=== PATIENT | female | born 1945 ===

== ENCOUNTER 2018-05-22 12:09 | Observation (INO) | payer OTHER ==
[2018-05-22 12:17] VITALS: BMI 24.6
--- NOTE | 2018-05-22 13:46 | RAD ---
Date of service: 05/22/2018 HISTORY: chest pain/ r/o infiltrate COMPARISON: No prior. TECHNIQUE: Chest PA and lateral FINDINGS: LUNGS: No active pulmonary disease. PLEURA: No significant pleural effusion identified. No pneumothorax apparent. CARDIOVASCULAR: Aortic atherosclerotic calcifications. Cardiomediastinal silhouette enlarged. OSSEOUS STRUCTURES: Spinal degenerative changes. VISUALIZED UPPER ABDOMEN: Normal. OTHER FINDINGS: None. IMPRESSION: No active disease.
--- NOTE | 2018-05-22 13:54 | ED PDOC ---
HPI: General Adult Time Seen by Provider: 05/22/18 12:37 Chief Complaint (Nursing): Flu-like Symptoms Chief Complaint (Provider): body pain, chest pain History Per: Patient, Ssrs Report Developer ([id number]) History/Exam Limitations: no limitations Onset/Duration Of Symptoms: Days (2) Current Symptoms Are (Timing): Still Present Severity: Moderate Additional Complaint(s): 73yo female presents w family member c/o body aches, chest pain, headache, ma laise, fatigue, cough ongoing for 2 days. Denies syncope, lethargy, edema or hemoptysis. No flu shot received this year, visiting from [place] country. Past Medical History Reviewed: Historical Data, Nursing Documentation, Vital Signs Vital Signs: Last Vital Signs Temp 98.3 F 05/22/18 12:17 Pulse 85 05/22/18 12:17 Resp 17 05/22/18 12:17 BP 113/70 05/22/18 12:17 Pulse Ox 96 05/22/18 12:17 - Medical History PMH: No Chronic Diseases Other PMH: wernt to PMD in [place] 4 [place]" but denies medical issues - Surgical History Surgical History: Cholecystectomy - Family History Family History: States: Unknown Family Hx - Living Arrangements Living Arrangements: With Family - Home Medications Home Medications: Ambulatory Orders Medication Instructions Recorded No Known Home Med 05/22/18 - Allergies Allergies/Adverse Reactions: Allergies Allergy/AdvReac Type Severity Reaction Status Date / Time No Known Allergies Allergy Verified 05/22/18 12:55 Review of Systems ROS Statement: Except As Marked, All Systems Reviewed And Found Negative Constitutional: Positive for: Weakness, Malaise ENT: Negative for: Ear Pain Respiratory: Positive for: Cough, Shortness of Breath Gastrointestinal: Negative for: Abdominal Pain Genitourinary Female: Negative for: Dysuria Musculoskeletal: Positive for: Arm Pain, Back Pain, Leg Pain, Other (myalgias) Neurological: Positive for: Headache, Dizziness. Negative for: Weakness, Numbness Physical Exam - Reviewed Nursing Documentation Reviewed: Yes Vital Signs Reviewed: Yes - Physical Exam Appears: Positive for: Well, Non-toxic, No Acute Distress Head Exam: Positive for: ATRAUMATIC, NORMAL INSPECTION, NORMOCEPHALIC Skin: Positive for: Normal Color, Warm, DRY Eye Exam: Positive for: EOMI, Normal appearance, PERRL ENT: Positive for: Normal ENT Inspection Neck: Positive for: Normal, Painless ROM Cardiovascular/Chest: Positive for: Regular Rate, Rhythm Respiratory: Positive for: Rhonchi Gastrointestinal/Abdominal: Positive for: Soft. Negative for: Tenderness, Guarding Back: Positive for: Normal Inspection Extremity: Positive for: Normal ROM Neurologic/Psych: Positive for: Alert, Oriented - Laboratory Results Result Diagrams: 05/22/18 14:00 05/22/18 14:00 - ECG ECG: Positive for: Interpreted By Me ECG Rhythm: Positive for: Normal QRS, Normal ST Segment, Sinus Rhythm Rate: 75 O2 Sat by Pulse Oximetry: 96 Pulse Ox Interpretation: Normal - Radiology X-Ray: Read By Radiologist X-Ray Interpretation: No Acute Disease Medical Decision Making Medical Decision Making: check flu, labs, CXR and EKG Gentle IVF and tylenol labs reviewed +flu given duoneb w some improvement lung hill given age, chest pain, +flu, admit obs tele. droplet isolation and tamiflu initiated Disposition - Clinical Impression Clinical Impression: Influenza, Chest pain - Patient ED Disposition Is Patient to be Admitted: Yes Counseled Patient/Family Regarding: Studies Performed, Diagnosis, Need For Followup - Disposition Disposition Time: 14:40 Condition: STABLE - Pt Status Changed To: Hospital Disposition Of: Observation
[2018-05-22] MEDS ORDERED: Sodium Chloride 0.9% 1,000 ML IV STA (14:01)
[2018-05-22 14:21] LABS: BASO % 0.5 % (0.0-2.0); EOS % 0.8 % (0.0-4.0); HEMOGLOBIN 13.7 g/dL (12.0-16.0); LYMPH # 1.7 K/uL (1.0-4.3); LYMPH % 27.5 % (20.0-40.0); MEAN CELL VOLUME 86.9 fl (81.0-99.0); MEAN CORPUSCULAR HGB CONC 33.4 g/dL (33.0-37.0); MEAN PLATELET VOLUME 10.3 fl (7.2-11.7); MONO # 0.6 K/uL (0.0-0.8); MONO % 10.4 % (0.0-10.0); NEUT # 3.7 K/uL (1.8-7.0); NEUT % 60.8 % (50.0-75.0); NRBC % 0.1 % (0.0-0.0); RBC 4.74 Mil/uL (3.80-5.20); RED CELL DISTRIBUTION WIDTH 13.9 % (11.5-14.5); WHITE BLOOD COUNT 6.1 K/uL (4.8-10.8)
[2018-05-22 14:30] LABS: RENAL EPITHELIAL 1 /hpf (0-3); SQUAMOUS EPITHIAL 8 /hpf (0-5); URINE AMORPHOUS SEDIMENT RARE /ul (<OCC); URINE BILIRUBIN NEGATIVE (NEGATIVE); URINE BLOOD NEGATIVE (NEGATIVE); URINE CLARITY CLOUDY (Clear); URINE COLOR AMBER (YELLOW); URINE GLUCOSE (UA) NEG (NEGATIVE); URINE LEUKOCYTE ESTERASE NEG Leu/uL (Negative); URINE PROTEIN 30 mg/dL (NEGATIVE)
[2018-05-22 15:01] LABS: ALB/GLOB RATIO 1.2 (1.0-2.1); ALBUMIN 4.2 g/dL (3.5-5.0); ALT/SGPT 47 U/L (9-52); AST/SGOT 53 U/L (14-36); BLOOD UREA NITROGEN 19 mg/dl (7-17); CALCIUM 9.8 mg/dL (8.4-10.2); GFR NON-AFRICAN AMERICAN > 60
[2018-05-22] MEDS ORDERED: Albuterol-Ipratrop 3 mg / 0.5 (3 ml) UD INH STA (15:10)
[2018-05-22 15:12] LABS: B-TYPE NATRIURETIC PEPTIDE 43.2 pg/ml (0-900)
[2018-05-22] MEDS ORDERED: Albuterol-Ipratrop 3 mg / 0.5 (3 ml) UD ONE (16:59)
[2018-05-22] MEDS: Potassium Chl 20 mEq in D5-NS 1,000 ML IV SCH (18:18)
--- NOTE | 2018-05-22 18:40 | CP.PCM.HP ---
<Noe Elizabeth - Last Filed: 05/22/18 19:04> History of Present Illness - History of Present Illness History of Present Illness: 73 yo F with no sig pmhx presents to ED with fevers, chest discomfort, generalized body aches, vomiting and diarrhea. Daughter present at bedside. Symptoms began on Thursday; Chest discomfort: after coughing, sternal, pressure, intermittent, lasting seconds to minutes, worsens with cough, alleviated mildly with tylenol Fever: subjective since Thursday Rhinorrhea: clear since thursday Cough: productive of white sputum: no blood Last PO diet: Thursday Last bm: diarrhea yesterday; negative for hematochezia/melena Sick contact: daughter Denies: hx of [place] PMD: none Surg: hysterectomy Soc: Denies smoking, alcohol, illicit drugs Rx: none NKDA Family hx: none VOYCE: [email or web address] [id number] Present on Admission - Present on Admission Any Indicators Present on Admission: No History of DVT/PE: No History of Uncontrolled Diabetes: No Urinary Catheter: No Review of Systems - Cardiovascular Cardiovascular: Chest Pain - Respiratory Respiratory: Cough, Chest Congestion, Pain with Coughing. absent: Dyspnea, Wheezing - Gastrointestinal Gastrointestinal: Diarrhea, Nausea, Vomiting. absent: Coffee Ground Emesis, Hematemesis, Hematochezia - Genitourinary Genitourinary: absent: Hematuria - Reproductive: Female Reproductive:Female: Amenorrhea Past Patient History - Past Social History Smoking Status: Never Smoked Alcohol: None Drugs: Denies Home Situation {Lives}: With Family - PSYCHIATRIC Hx Substance Use: No - SURGICAL HISTORY Hx Cholecystectomy: Yes - ANESTHESIA Hx Anesthesia: Yes Hx Anesthesia Reactions: No Meds Home Medications: Home Medication List Medication Instructions Recorded Confirmed Type Acetaminophen [Tylenol 325mg tab] 650 mg PO Q4 PRN tab 05/23/18 Rx Oseltamivir Cap [Tamiflu Cap] 75 mg PO BID 4 Days #8 capsule 05/23/18 Rx Allergies/Adverse Reactions: Allergies Allergy/AdvReac Type Severity Reaction Status Date / Time No Known Allergies Allergy Verified 05/22/18 12:55 Physical Exam - Eye Exam Eye Exam: EOMI - ENT Exam ENT Exam: Mucous Membranes Moist - Respiratory Exam Respiratory Exam: absent: Wheezes Additional comments: congestion; phlegmatous cough - Cardiovascular Exam Cardiovascular Exam: REGULAR RHYTHM, +S1, +S2 - GI/Abdominal Exam GI & Abdominal Exam: Normal Bowel Sounds, Soft. absent: Tenderness - Extremities Exam Extremities exam: Negative for: calf tenderness - Back Exam Back exam: absent: CVA tenderness (L), CVA tenderness (R) - Neurological Exam Neurological exam: Alert, CN II-XII Intact, Oriented x3 - Psychiatric Exam Psychiatric exam: Normal Affect, Normal Mood Results - Vital Signs Recent Vital Signs: Last Vital Signs Temp 98.3 F 05/22/18 12:17 Pulse 81 05/22/18 18:25 Resp 18 05/22/18 18:25 BP 117/57 L 05/22/18 18:25 Pulse Ox 94 L 05/22/18 18:25 - Labs Result Diagrams: 05/22/18 14:00 05/22/18 14:00 Labs: Laboratory Results - last 24 hr 05/22/18 05/22/18 05/22/18 13:40 14:00 14:00 WBC 6.1 RBC 4.74 Hgb 13.7 Hct 41.1 MCV 86.9 MCH 29.0 MCHC 33.4 RDW 13.9 Plt Count 110 L MPV 10.3 Neut % (Auto) 60.8 Lymph % (Auto) 27.5 [place] % (Auto) 10.4 H Eos % (Auto) 0.8 Baso % (Auto) 0.5 Neut # (Auto) 3.7 Lymph # (Auto) 1.7 [place] # (Auto) 0.6 Eos # (Auto) 0.0 Baso # (Auto) 0.0 Sodium 139 Potassium 4.0 Chloride 98 Carbon Dioxide 26 Anion Gap 19 BUN 19 H Creatinine 0.5 L Est GFR ( Amer) > 60 Est GFR (Non-Af Amer) > 60 Random Glucose 103 Calcium 9.8 Total Bilirubin 0.5 AST 53 H ALT 47 Alkaline Phosphatase 122 Troponin I < 0.0120 NT-Pro-B Natriuret Pep 43.2 Total Protein 7.8 Albumin 4.2 Globulin 3.5 Albumin/Globulin Ratio 1.2 Urine Color Urine Clarity Urine pH Ur Specific [place] Urine Protein Urine Glucose (UA) Urine Ketones Urine Blood Urine Nitrate Urine Bilirubin Urine Urobilinogen Ur Leukocyte Esterase Urine Microscopic WBC Ur Squamous Epith Cells Ur Renal Epithelial Cell Amorphous Sediment Influenza Typ A,B (EIA) Pos for influenza a H 05/22/18 14:00 WBC RBC Hgb Hct MCV MCH MCHC RDW Plt Count MPV Neut % (Auto) Lymph % (Auto) [place] % (Auto) Eos % (Auto) Baso % (Auto) Neut # (Auto) Lymph # (Auto) [place] # (Auto) Eos # (Auto) Baso # (Auto) Sodium Potassium Chloride Carbon Dioxide Anion Gap BUN Creatinine Est GFR ( Amer) Est GFR (Non-Af Amer) Random Glucose Calcium Total Bilirubin AST ALT Alkaline Phosphatase Troponin I NT-Pro-B Natriuret Pep Total Protein Albumin Globulin Albumin/Globulin Ratio Urine Color Meg Urine Clarity Cloudy Urine pH 5.0 Ur Specific [place] 1.029 Urine Protein 30 Urine Glucose (UA) Neg Urine Ketones 20 Urine Blood Negative Urine Nitrate Negative Urine Bilirubin Negative Urine Urobilinogen 4.0 H Ur Leukocyte Esterase Neg Urine Microscopic WBC 5 Ur Squamous Epith Cells 8 H Ur Renal Epithelial Cell 1 Amorphous Sediment Rare H Influenza Typ A,B (EIA) Assessment & Plan - Assessment and Plan (Free Text) Assessment: 73 yo F with no sig pmhx presents to ED with fevers, chest discomfort, generalized body aches, vomiting and diarrhea. Plan: Influenza A: -Isolation: Droplet precautions -Acetaminophen for fevers -Tamiflu 75 mg Q12hr -IVF: D5 1/2 NS K20 -f/u UCX, CBC, BMP Chostochondritis: -admit to Tele -satellite project site monitor -pain management -trop neg x1 -f/u trop x2 DVT prophylaxis: -SCDs Case and plan d/w Dr. Angel Elizabeth MD PGY2 <Jennifer Ortiz - Last Filed: 05/23/18 14:04> Results - Vital Signs Recent Vital Signs: Last Vital Signs Temp 97.6 F 05/23/18 13:06 Pulse 69 05/23/18 13:06 Resp 19 05/23/18 13:06 BP 165/71 H 05/23/18 13:06 Pulse Ox 95 05/23/18 13:06 - Labs Result Diagrams: 05/23/18 05:40 05/22/18 21:25 Labs: Laboratory Results - last 24 hr 05/22/18 05/22/18 05/22/18 13:40 14:00 14:00 WBC 6.1 RBC 4.74 Hgb 13.7 Hct 41.1 MCV 86.9 MCH 29.0 MCHC 33.4 RDW 13.9 Plt Count 110 L MPV 10.3 Neut % (Auto) 60.8 Lymph % (Auto) 27.5 [place] % (Auto) 10.4 H Eos % (Auto) 0.8 Baso % (Auto) 0.5 Neut # (Auto) 3.7 Lymph # (Auto) 1.7 [place] # (Auto) 0.6 Eos # (Auto) 0.0 Baso # (Auto) 0.0 Sodium 139 Potassium 4.0 Chloride 98 Carbon Dioxide 26 Anion Gap 19 BUN 19 H Creatinine 0.5 L Est GFR ( Amer) > 60 Est GFR (Non-Af Amer) > 60 Random Glucose 103 Calcium 9.8 Total Bilirubin 0.5 AST 53 H ALT 47 Alkaline Phosphatase 122 Troponin I < 0.0120 NT-Pro-B Natriuret Pep 43.2 Total Protein 7.8 Albumin 4.2 Globulin 3.5 Albumin/Globulin Ratio 1.2 Urine Color Urine Clarity Urine pH Ur Specific [place] Urine Protein Urine Glucose (UA) Urine Ketones Urine Blood Urine Nitrate Urine Bilirubin Urine Urobilinogen Ur Leukocyte Esterase Urine Microscopic WBC Ur Squamous Epith Cells Ur Renal Epithelial Cell Amorphous Sediment Influenza Typ A,B (EIA) Pos for influenza a H 05/22/18 05/22/18 05/22/18 14:00 21:25 21:25 WBC RBC Hgb Hct MCV MCH MCHC RDW Plt Count MPV Neut % (Auto) Lymph % (Auto) [place] % (Auto) Eos % (Auto) Baso % (Auto) Neut # (Auto) Lymph # (Auto) [place] # (Auto) Eos # (Auto) Baso # (Auto) Sodium 137 Potassium 3.7 Chloride 100 Carbon Dioxide 25 Anion Gap 16 BUN 17 Creatinine 0.6 L Est GFR ( Amer) > 60 Est GFR (Non-Af Amer) > 60 Random Glucose 133 H Calcium 8.9 Total Bilirubin AST ALT Alkaline Phosphatase Troponin I < 0.0120 NT-Pro-B Natriuret Pep Total Protein Albumin Globulin Albumin/Globulin Ratio Urine Color Meg Urine Clarity Cloudy Urine pH 5.0 Ur Specific [place] 1.029 Urine Protein 30 Urine Glucose (UA) Neg Urine Ketones 20 Urine Blood Negative Urine Nitrate Negative Urine Bilirubin Negative Urine Urobilinogen 4.0 H Ur Leukocyte Esterase Neg Urine Microscopic WBC 5 Ur Squamous Epith Cells 8 H Ur Renal Epithelial Cell 1 Amorphous Sediment Rare H Influenza Typ A,B (EIA) 05/23/18 05/23/18 05:40 05:40 WBC 3.9 L RBC 4.14 Hgb 12.1 Hct 35.9 MCV 86.8 MCH 29.2 MCHC 33.7 RDW 13.5 Plt Count 106 L MPV Neut % (Auto) Lymph % (Auto) [place] % (Auto) Eos % (Auto) Baso % (Auto) Neut # (Auto) Lymph # (Auto) [place] # (Auto) Eos # (Auto) Baso # (Auto) Sodium Potassium Chloride Carbon Dioxide Anion Gap BUN Creatinine Est GFR ( Amer) Est GFR (Non-Af Amer) Random Glucose Calcium Total Bilirubin AST ALT Alkaline Phosphatase Troponin I < 0.0120 NT-Pro-B Natriuret Pep Total Protein Albumin Globulin Albumin/Globulin Ratio Urine Color Urine Clarity Urine pH Ur Specific [place] Urine Protein Urine Glucose (UA) Urine Ketones Urine Blood Urine Nitrate Urine Bilirubin Urine Urobilinogen Ur Leukocyte Esterase Urine Microscopic WBC Ur Squamous Epith Cells Ur Renal Epithelial Cell Amorphous Sediment Influenza Typ A,B (EIA) Attending/Attestation - Attestation I have personally seen and examined this patient.: Yes I have fully participated in the care of the patient.: Yes I have reviewed all pertinent clinical information: Yes Notes (Text): 05/23/18 14:03 AGREE WITH FINDINGS AND PLAN ABOVE. FLU+ ON TAMIFLU CHEST PAIN LIKELY COSTOCHONDRITIS AND FROM COUGH. REPRODUCIBLE.
[2018-05-22 21:45] LABS: BLOOD UREA NITROGEN 17 mg/dl (7-17); CALCIUM 8.9 mg/dL (8.4-10.2); GFR NON-AFRICAN AMERICAN > 60
[2018-05-23] MEDS: Potassium Chl 20 mEq in D5-NS 1,000 ML IV SCH ×2 (02:01→13:03)
[2018-05-23 07:10] LABS: HEMOGLOBIN 12.1 g/dL (12.0-16.0); MEAN CELL VOLUME 86.8 fl (81.0-99.0); MEAN CORPUSCULAR HEMOGLOBIN 29.2 pg (27.0-31.0); MEAN CORPUSCULAR HGB CONC 33.7 g/dL (33.0-37.0); RBC 4.14 Mil/uL (3.80-5.20); RED CELL DISTRIBUTION WIDTH 13.5 % (11.5-14.5); WHITE BLOOD COUNT 3.9 K/uL (4.8-10.8)
--- NOTE | 2018-05-23 09:50 | CP.PCM.DIS ---
<Sanchezpavithra BolanosSerg - Last Filed: 05/23/18 14:10> Provider - Provider Date of Admission: 05/22/18 15:08 Attending physician: Jennifer Ortiz DO Primary care physician: Follow up with your PMD within a week Consults: 05/23/18 02:40 Pastoral Care Referral Routine Comment: Physician Instructions: Reason For Exam: new admission Time Spent in preparation of Discharge (in minutes): 33 Diagnosis - Discharge Diagnosis (1) Influenza Status: Acute (2) Chest pain Status: Resolved (3) Costochondritis, acute Status: Acute Hospital Course - Lab Results Lab Results: Most Recent Lab Values WBC 3.9 K/uL (4.8-10.8) L 05/23/18 05:40 RBC 4.14 Mil/uL (3.80-5.20) 05/23/18 05:40 Hgb 12.1 g/dL (12.0-16.0) 05/23/18 05:40 Hct 35.9 % (34.0-47.0) 05/23/18 05:40 MCV 86.8 fl (81.0-99.0) 05/23/18 05:40 MCH 29.2 pg (27.0-31.0) 05/23/18 05:40 MCHC 33.7 g/dL (33.0-37.0) 05/23/18 05:40 RDW 13.5 % (11.5-14.5) 05/23/18 05:40 Plt Count 106 K/uL (130-400) L 05/23/18 05:40 MPV 10.3 fl (7.2-11.7) 05/22/18 14:00 Neut % (Auto) 60.8 % (50.0-75.0) 05/22/18 14:00 Lymph % (Auto) 27.5 % (20.0-40.0) 05/22/18 14:00 [place] % (Auto) 10.4 % (0.0-10.0) H 05/22/18 14:00 Eos % (Auto) 0.8 % (0.0-4.0) 05/22/18 14:00 Baso % (Auto) 0.5 % (0.0-2.0) 05/22/18 14:00 Neut # (Auto) 3.7 K/uL (1.8-7.0) 05/22/18 14:00 Lymph # (Auto) 1.7 K/uL (1.0-4.3) 05/22/18 14:00 [place] # (Auto) 0.6 K/uL (0.0-0.8) 05/22/18 14:00 Eos # (Auto) 0.0 K/uL (0.0-0.7) 05/22/18 14:00 Baso # (Auto) 0.0 K/uL (0.0-0.2) 05/22/18 14:00 Sodium 137 mmol/l (132-148) 05/22/18 21:25 Potassium 3.7 MMOL/L (3.6-5.0) 05/22/18 21:25 Chloride 100 mmol/L (98-107) 05/22/18 21:25 Carbon Dioxide 25 mmol/L (22-30) 05/22/18 21:25 Anion Gap 16 (10-20) 05/22/18 21:25 BUN 17 mg/dl (7-17) 05/22/18 21:25 Creatinine 0.6 mg/dl (0.7-1.2) L 05/22/18 21:25 Est GFR ( Amer) > 60 05/22/18 21:25 Est GFR (Non-Af Amer) > 60 05/22/18 21:25 Random Glucose 133 mg/dL (65-105) H 05/22/18 21:25 Calcium 8.9 mg/dL (8.4-10.2) 05/22/18 21:25 Total Bilirubin 0.5 mg/dl (0.2-1.3) 05/22/18 14:00 AST 53 U/L (14-36) H 05/22/18 14:00 ALT 47 U/L (9-52) 05/22/18 14:00 Alkaline Phosphatase 122 U/L (38-126) 05/22/18 14:00 Troponin I < 0.0120 ng/mL (0.00-0.120) 05/23/18 05:40 NT-Pro-B Natriuret Pep 43.2 pg/ml (0-900) 05/22/18 14:00 Total Protein 7.8 G/DL (6.3-8.2) 05/22/18 14:00 Albumin 4.2 g/dL (3.5-5.0) 05/22/18 14:00 Globulin 3.5 gm/dL (2.2-3.9) 05/22/18 14:00 Albumin/Globulin Ratio 1.2 (1.0-2.1) 05/22/18 14:00 Urine Color Meg (YELLOW) 05/22/18 14:00 Urine Clarity Cloudy (Clear) 05/22/18 14:00 Urine pH 5.0 (5.0-8.0) 05/22/18 14:00 Ur Specific [place] 1.029 (1.003-1.030) 05/22/18 14:00 Urine Protein 30 mg/dL (NEGATIVE) 05/22/18 14:00 Urine Glucose (UA) Neg mg/dL (NEGATIVE) 05/22/18 14:00 Urine Ketones 20 mg/dL (NEGATIVE) 05/22/18 14:00 Urine Blood Negative (NEGATIVE) 05/22/18 14:00 Urine Nitrate Negative (NEGATIVE) 05/22/18 14:00 Urine Bilirubin Negative (NEGATIVE) 05/22/18 14:00 Urine Urobilinogen 4.0 mg/dL (0.2-1.0) H 05/22/18 14:00 Ur Leukocyte Esterase Neg [place]/uL (Negative) 05/22/18 14:00 Urine Microscopic WBC 5 /hpf (0-5) 05/22/18 14:00 Ur Squamous Epith Cells 8 /hpf (0-5) H 05/22/18 14:00 Ur Renal Epithelial Cell 1 /hpf (0-3) 05/22/18 14:00 Amorphous Sediment Rare /ul (<OCC) H 05/22/18 14:00 Influenza Typ A,B (EIA) Pos for influenza a (NEGATIVE) H 05/22/18 13:40 - Hospital Course Hospital Course: 73 yo F with no significant pmhx admitted from to ED with fevers, chest discomfort, generalized body aches, vomiting and diarrhea. Patient was diagnosed with positive for Influenza A, the rest of the lab workup was unreamarkable, Cardiac troponin x 3 negative. Patient was admitted and treatment was started with Tamiflu, IVF given. Patient reports today feeling significant better, although c/o mild chest pain with cough and feels some nasal congestion and decreased appetite, otherwise denies chest pain at rest, SOB, is afebrile and hemodinamically stable. Patient is found stable to be discharge home with continued outpatient treatment with Tamiflu to complete 5 days. Patient and family in room at bedside of patient verbalize agreement with plan. patient verbalizes desire to go home. Patient instructed to f/u at [facility] within a week. ED Precautions given to patient and family. D/C Diagnosis: Influenza A. Costochondritis Plan: -Tamiflu 75 mg PO Q12h x 5 days total -Acetaminophen OTC 650 PO Q6h PRN pain -F/u with PMD or [facility] within a week Discharge Exam - Head Exam Head Exam: ATRAUMATIC, NORMAL INSPECTION, NORMOCEPHALIC - Eye Exam Eye Exam: EOMI - ENT Exam ENT Exam: Mucous Membranes Moist - Neck Exam Neck exam: Full Rom - Respiratory Exam Respiratory Exam: Clear to PA & Lateral - Cardiovascular Exam Cardiovascular Exam: REGULAR RHYTHM, +S1, +S2 - GI/Abdominal Exam GI & Abdominal Exam: Normal Bowel Sounds. absent: Mass - Neurological Exam Neurological exam: Alert, CN II-XII Intact, Normal Gait, Oriented x3 - Psychiatric Exam Psychiatric exam: Normal Affect - Skin Skin Exam: Dry, Intact, Normal Color, Warm Discharge Plan - Discharge Medications Prescriptions: Oseltamivir Cap [Tamiflu Cap] 75 mg PO BID 4 Days #8 capsule - Follow Up Plan Condition: STABLE Disposition: HOME/ ROUTINE Instructions: Flu, Adult (DC) Referrals: [facility] [Outside] Serg Morales MD [Resident] - <Jennifer Ortiz - Last Filed: 05/23/18 15:42> Provider - Provider Date of Admission: 05/22/18 15:08 Attending physician: Jennifer Ortiz DO Consults: 05/23/18 02:40 Pastoral Care Referral Routine Comment: Physician Instructions: Reason For Exam: new admission Hospital Course - Lab Results Lab Results: Micro Results 05/22/18 13:40 Urine,Clean Catch Urine Culture - Final 10-50,000 CFU/ML. MULTIPLE SPECIES. PROBABLE CONTAMINATION. Most Recent Lab Values WBC 3.9 K/uL (4.8-10.8) L 05/23/18 05:40 RBC 4.14 Mil/uL (3.80-5.20) 05/23/18 05:40 Hgb 12.1 g/dL (12.0-16.0) 05/23/18 05:40 Hct 35.9 % (34.0-47.0) 05/23/18 05:40 MCV 86.8 fl (81.0-99.0) 05/23/18 05:40 MCH 29.2 pg (27.0-31.0) 05/23/18 05:40 MCHC 33.7 g/dL (33.0-37.0) 05/23/18 05:40 RDW 13.5 % (11.5-14.5) 05/23/18 05:40 Plt Count 106 K/uL (130-400) L 05/23/18 05:40 MPV 10.3 fl (7.2-11.7) 05/22/18 14:00 Neut % (Auto) 60.8 % (50.0-75.0) 05/22/18 14:00 Lymph % (Auto) 27.5 % (20.0-40.0) 05/22/18 14:00 [place] % (Auto) 10.4 % (0.0-10.0) H 05/22/18 14:00 Eos % (Auto) 0.8 % (0.0-4.0) 05/22/18 14:00 Baso % (Auto) 0.5 % (0.0-2.0) 05/22/18 14:00 Neut # (Auto) 3.7 K/uL (1.8-7.0) 05/22/18 14:00 Lymph # (Auto) 1.7 K/uL (1.0-4.3) 05/22/18 14:00 [place] # (Auto) 0.6 K/uL (0.0-0.8) 05/22/18 14:00 Eos # (Auto) 0.0 K/uL (0.0-0.7) 05/22/18 14:00 Baso # (Auto) 0.0 K/uL (0.0-0.2) 05/22/18 14:00 Sodium 137 mmol/l (132-148) 05/22/18 21:25 Potassium 3.7 MMOL/L (3.6-5.0) 05/22/18 21:25 Chloride 100 mmol/L (98-107) 05/22/18 21:25 Carbon Dioxide 25 mmol/L (22-30) 05/22/18 21:25 Anion Gap 16 (10-20) 05/22/18 21:25 BUN 17 mg/dl (7-17) 05/22/18 21:25 Creatinine 0.6 mg/dl (0.7-1.2) L 05/22/18 21:25 Est GFR ( Amer) > 60 05/22/18 21:25 Est GFR (Non-Af Amer) > 60 05/22/18 21:25 Random Glucose 133 mg/dL (65-105) H 05/22/18 21:25 Calcium 8.9 mg/dL (8.4-10.2) 05/22/18 21:25 Total Bilirubin 0.5 mg/dl (0.2-1.3) 05/22/18 14:00 AST 53 U/L (14-36) H 05/22/18 14:00 ALT 47 U/L (9-52) 05/22/18 14:00 Alkaline Phosphatase 122 U/L (38-126) 05/22/18 14:00 Troponin I < 0.0120 ng/mL (0.00-0.120) 05/23/18 05:40 NT-Pro-B Natriuret Pep 43.2 pg/ml (0-900) 05/22/18 14:00 Total Protein 7.8 G/DL (6.3-8.2) 05/22/18 14:00 Albumin 4.2 g/dL (3.5-5.0) 05/22/18 14:00 Globulin 3.5 gm/dL (2.2-3.9) 05/22/18 14:00 Albumin/Globulin Ratio 1.2 (1.0-2.1) 05/22/18 14:00 Urine Color Meg (YELLOW) 05/22/18 14:00 Urine Clarity Cloudy (Clear) 05/22/18 14:00 Urine pH 5.0 (5.0-8.0) 05/22/18 14:00 Ur Specific [place] 1.029 (1.003-1.030) 05/22/18 14:00 Urine Protein 30 mg/dL (NEGATIVE) 05/22/18 14:00 Urine Glucose (UA) Neg mg/dL (NEGATIVE) 05/22/18 14:00 Urine Ketones 20 mg/dL (NEGATIVE) 05/22/18 14:00 Urine Blood Negative (NEGATIVE) 05/22/18 14:00 Urine Nitrate Negative (NEGATIVE) 05/22/18 14:00 Urine Bilirubin Negative (NEGATIVE) 05/22/18 14:00 Urine Urobilinogen 4.0 mg/dL (0.2-1.0) H 05/22/18 14:00 Ur Leukocyte Esterase Neg [place]/uL (Negative) 05/22/18 14:00 Urine Microscopic WBC 5 /hpf (0-5) 05/22/18 14:00 Ur Squamous Epith Cells 8 /hpf (0-5) H 05/22/18 14:00 Ur Renal Epithelial Cell 1 /hpf (0-3) 05/22/18 14:00 Amorphous Sediment Rare /ul (<OCC) H 05/22/18 14:00 Influenza Typ A,B (EIA) Pos for influenza a (NEGATIVE) H 05/22/18 13:40 Attending/Attestation - Attestation I have personally seen and examined this patient.: Yes I have fully participated in the care of the patient.: Yes I have reviewed all pertinent clinical information, including history, physical exam and plan: Yes Notes (Text): 05/23/18 15:42 agree with findings and plan as above.
--- NOTE | 2018-05-23 10:01 | CARD ---
APPROVED REPORT Date of service: 05/22/2018 EKG Measurement Heart [id number] <Conclusion> Normal sinus rhythm Normal ECG
[2018-05-23 13:03] VITALS: RESP 19
[2018-05-23 13:07] VITALS: BP 165/71; PULSE 69; TEMP 97.6; O2SAT 95
== END 2018-05-23 13:00 | disposition home or self-care (01) ==
LOC: H.ER 12:09 → H.ERHOLD 15:08 → H.TEL 05-23 00:56
PROVIDERS: ADMIT Student in an Organized Health Care Education/Training Program; ATTEND Student in an Organized Health Care Education/Training Program
DX: J10.1 Influenza due to other identified influenza virus with other respiratory manifestations (principal); M94.0 Chondrocostal junction syndrome [Tietze]; Z90.49 Acquired absence of other specified parts of digestive tract
CPT/HCPCS: 36415; 71046; 80053; 81003; 83880; 84484; 85025; 85027; 87086; 87804; 93005; 96375; 99285; G0378; J1885; J7030